=== PATIENT | male | born 1950 | race Caucasian/White ===

== ENCOUNTER 2018-09-18 14:42 | Inpatient (IN) | payer OTHER ==
[~2018-09-18] VITALS: Ht 170.2 cm; Wt 84.4 kg
--- NOTE | 2018-09-18 00:16 | NUR ---
CONDOM CATH PLACEMENT ATTEMPTED TWICE BY CHELSY RN AND RESOURCE NURSE. PT BECAME FRUSTRATED, PT STATES, "NEVERMIND, I'LL JUST PEE IN THE URINAL IF IT'S GOING TO KEEP SLIPPING OFF." NO ACUTE DISTRESS NOTED. CALL LIGHT WITHIN REACH. WILL CONT TO MONITOR.
--- NOTE | 2018-09-18 15:03 | NUR ---
O2 2L NC TURNED OFF BY DR COCHRAN FOR ABG DRAW
--- NOTE | 2018-09-18 15:03 | NUR ---
PT BIBA FROM HOME FOR CHEST PAIN AND SOB. PT REPORTS CONSTANT CP FOR 3 MONTHS WORSENED IN THE LAST 3 DAYS WITH SOB ASSOCIATED. PT REPORTS EPISODIC SHARP CHEST PAIN ON L SIDE OF CHEST ONCE AN HR "IT'S LIKE A PUNCH AND IT GOES AWAY." PT AAOX4; ARRIVED IN [facility]. SITTING WITH HOB UP HIGH FOWLERS
--- NOTE | 2018-09-18 15:03 | NUR ---
MSE COMPLETED BY DR COCHRAN.
[2018-09-18 15:09] VITALS: Ht 170.2 cm; Wt 84.4 kg
--- NOTE | 2018-09-18 15:15 | NUR ---
LAB AT [facility] FOR BLOOD DRAW
[2018-09-18 15:44] LABS: BASOPHIL % 0.2 % (0-2); PLATELET COUNT 224 x10^3mcL (130-400); RED CELL DISTRIBUTION WIDTH 21.2 % (11.5-14.5)
[2018-09-18 15:58] LABS: microscopic required? YES; urine erythrocyte NEGATIVE (NEGATIVE)
[2018-09-18 16:02] LABS: rbc morphology (normal/abnorm) ABNORMAL (NORMAL); target cell (codocyte) 1+
[2018-09-18 16:03] LABS: FREE T4 1.16 ng/dL (0.76-1.46); FREE THYROXINE INDEX 2.7 ug/dL (1.4-4.5)
[2018-09-18 16:05] LABS: CALCIUM 8.1 mg/dL (8.5-10.1); CARBON DIOXIDE 24.9 mmol/L (21-32); CHLORIDE SERUM 105 mmol/L (98-107); CREATININE SERUM 1.1 mg/dL (0.7-1.3); GFR1 > 60 mL/min; GLUCOSE SERUM 108 mg/dL (74-106); POTASSIUM SERUM 4.3 mmol/L (3.5-5.1); SODIUM SERUM 141 mmol/L (136-145)
[2018-09-18] MEDS ORDERED: ATORVASTATIN CA40 M1 PO (16:14)
[2018-09-18] MEDS ORDERED: COR6 PO (16:14)
[2018-09-18] MEDS ORDERED: ELIQUIS5 M1 PO (16:14)
[2018-09-18] MEDS ORDERED: CETIRIZINE HYDR10 MG PO (16:15)
[2018-09-18] MEDS ORDERED: GOOD SENSE OMEP20 MG PO (16:15)
[2018-09-18] MEDS ORDERED: HYDROCHLOROTH12.5 M2 PO (16:15)
[2018-09-18] MEDS ORDERED: PRADAXA150 M1 PO (16:15)
[2018-09-18] MEDS ORDERED: LASIX20 MG PO (16:15)
[2018-09-18 16:16] LABS: ALKALINE PHOSPHATASE 139 U/L (46-116); ALT/SGPT 16 U/L (16-63); AST/SGOT 21 U/L (15-37); BILIRUBIN TOTAL 0.8 mg/dL (0.20-1.00); C REACTIVE PROTEIN 2.8 mg/dL (<=0.9); TOTAL PROTEIN, SERUM 7.8 g/dL (6.4-8.2)
[2018-09-18 16:17] LABS: ALBUMIN 2.9 g/dL (3.4-5.0)
[2018-09-18 16:28] LABS: ERYTHROCYTE SED RATE 51 mm/hr (0-20)
--- NOTE | 2018-09-18 16:46 | NUR ---
PT KEPT NPO PER DR COCHRAN ORDER BUT ICE CHIPS OK. ICE CHIPS GIVEN TO PT.
--- NOTE | 2018-09-18 17:32 | NUR ---
RT AT BEDSIDE TO PLACE PT ON BIPAP
[2018-09-18 17:40] LABS: T3 TOTAL 0.62 ng/mL
--- NOTE | 2018-09-18 17:40 | NUR ---
DR COCHRAN AWARE PT STATING HE STILL HAS CHEST PAIN
--- NOTE | 2018-09-18 17:48 | NUR ---
TX STILL IN PLACE VIA BIPAP. PT REPORTS FEELING BETTER AND LESS SOB
--- NOTE | 2018-09-18 17:49 | NUR ---
DR VIEIRA AT BEDSIDE ASSESSING PT
--- NOTE | 2018-09-18 18:21 | NUR ---
REPORT GIVEN TO JOSEPH HUGHES
[2018-09-18 18:57] VITALS: BP 178/77
--- NOTE | 2018-09-18 19:02 | NUR ---
RECEIVED PT FROM ED VIA [facility]. ORIENTED PT TO ROOM AND SURROUNDINGS. IV NOTED TO LAC PATENT AND INTACT. TELE 6 PLACED ON PT READING AFIB. INSTRUCTED PT ON THE USE OF CALL LIGHT FOR ASSISTANCE. ENDORSED PT TO PRIMARY NURSE
--- NOTE | 2018-09-18 19:08 | NUR ---
PT RECEIVED FROM RESOURCE NURSE. PT A/O X4, ABLE TO MAKE NEEDS KNOWN. TELE #6, AFIB, DENIES CP/PRESSURE. PULSES PALPABLE, EDEMA TO BLE. LUNG SOUNDS CONGESTED JULIOCESAR, BREATHING IS EVEN AND UNALBORED ON 2L NC, ADMITS TO SOB UPON EXERTION. ABD SOFT AND ROUND, BOWEL TONES ACTIVE X4 QUAD, DENIES N/V. VOIDS FREELY, URINAL AT BEDSIDE. AMBULATORY WITH CANSE AT BASELINE. ECCHYMOSIS TO BUE AND SCATTERED ECCHYMOSIS TO BUTTOCKS, JESSICA. PT DENIES ANY PAIN AT THIS TIME. SL TO LAC, PATENT AND INTACT, SITE FREE FROM REDNESS OR SWELLING. BED IN LOWEST SETTING, SIDE RAILS UP X2, CALL LIGHT WITHIN REACH. WILL CONT TO MONITOR.
[2018-09-18 19:14] LABS: MAGNESIUM 1.7 mg/dL (1.8-2.4); PHOSPHOROUS 3.1 mg/dL (2.5-4.9)
[2018-09-18 19:16] LABS: CHOLESTEROL/HDL RATIO 3.1
[2018-09-18 21:12] VITALS: BP 146/62
--- NOTE | 2018-09-18 21:35 | NUR ---
PT C/O 8/10 RLE PAIN AND HEADACHE, PRN TYLENOL GIVEN ORDERED. NO ACUTE DISTRESS NOTED. WILL CONT TO MONITOR.
[2018-09-18 21:40] VITALS: BP 161/44
[2018-09-18 22:01] VITALS: BP 145/51
--- NOTE | 2018-09-18 22:13 | NUR ---
PT C/O "PEEING TOO MUCH." PT WAS GIVEN IV LASIX IN ED. PT STATES, "I WANT A VAZQUEZ! I CAN'T BE STANDING UP EVERY FIVE MINUTES TO PEE!" EDUCATED PT ON RISK OF DEVELOPING INFECTION WITH VAZQUEZ CATH, PT VERBALIZES UNDERSTANDING. PT STATES, "OKAY, I UNDERSTAND, BUT I'M WILLING TO TAKE THE RISK!" DR MCKEON MADE AWARE, AWAITING ORDERS AT THIS TIME.
--- NOTE | 2018-09-18 22:38 | NUR ---
PT REFUSING VAZQUEZ CATH. PT STATES, "NO, NOT THAT ONE! THAT ONE HURTS! I WANT THE ONE THAT GOES OVER AND ATTACHES TO THE SIDE." PT REQUESTING CONDOM CATH INSTEAD OF VAZQUEZ CATH. DR MCKEON MADE AWARE, AWAITING ORDERS AT THIS TIME.
--- NOTE | 2018-09-18 22:44 | NUR ---
DR MCKEON MADE AWARE OF US CHEST RESULTS. NO NEW ORDERS AT THIS TIME.
--- NOTE | 2018-09-18 23:12 | NUR ---
CONDOM CATH PLACEMENT ATTEMPTED TWICE BY CHELSY RN AND RESOURCE NURSE WITH NO SUCCESS. PT BECAME FRUSTRATED, PT STATES "IT KEEPS SLIPPING OUT! IF IT'S GOING TO KEEP COMING OUT, THEN I'LL JSUT USE THE URINAL." URINAL PLACED AT BEDSIDE. NO ACUTE DISTRESS NOTED. CALL LIGHT WITHIN REACH. WILL CONT TO MONITOR.
--- NOTE | 2018-09-18 23:47 | NUR ---
PT CONT TO C/O 01/08 RLE PAIN AND HEADACHE, DR MCKEON MADE AWARE, ORDERS RECEIVED. PRN NORCO 5/325 PO GIVEN ORDERED. NO ACUTE DISTRESS NOTED. WILL CONT TO MONITOR.
--- NOTE | 2018-09-19 01:42 | NUR ---
PT C/O INSOMNIA, PRN AMBIEN GIVEN ORDERED. BREATHING IS EVEN AND UNLABORED, NO ACUTE DISTRESS NOTED. HOB ELEVATED. CALL LIGHT WITHIN REACH. WILL CONT TO MONITOR.
[2018-09-19 06:35] LABS: CALCIUM 8.1 mg/dL (8.5-10.1); CARBON DIOXIDE 30.8 mmol/L (21-32); CHLORIDE SERUM 104 mmol/L (98-107); CREATININE SERUM 1.2 mg/dL (0.7-1.3); GFR1 > 60 mL/min; GLUCOSE SERUM 104 mg/dL (74-106); POTASSIUM SERUM 4.6 mmol/L (3.5-5.1); SODIUM SERUM 139 mmol/L (136-145)
[2018-09-19 06:37] LABS: BASOPHIL % 0.7 % (0-2); PLATELET COUNT 207 x10^3mcL (130-400)
[2018-09-19 06:38] VITALS: BP 131/44
--- NOTE | 2018-09-19 06:48 | NUR ---
PT SLEPT AT INTERVALS THROUGHOUT THE EVENING. BREATHING IS EVEN AND UNLABORED, NO RESP DISTRESS NOTED. PT DENIES HAVING ANY PAIN AT THIS TIME. IV TO LAC, PATENT AND INTACT, SITE FREE FROM REDNESS OR SWELLING. NO ACUTE DISTRESS NOTED. HOB ELEVATED. CALL LIGHT WITHIN REACH. WILL ENDORSE CARE TO AM NURSE.
[2018-09-19 07:07] VITALS: BP 145/50
--- NOTE | 2018-09-19 07:28 | NUR ---
PT C/O 03/10 HEADACHE, PRN TYLENOL GIVEN ORDERED. NO ACUTE DISTRESS NOTED. CONTINUITY OF CARE ENDORSED TO AM NURSE. ALL QUESTIONS AND CONCERNS ADDRESSED
[2018-09-19 07:37] LABS: RED CELL DISTRIBUTION WIDTH 21.1 % (11.5-14.5)
--- NOTE | 2018-09-19 07:45 | NUR ---
PT IS AAOX4. RESP EVEN, SHALLOW. LUNG SOUND CONGESTED LOWER LOBES. ON O2 N/C AT [address] READING AFIB, HR 68. NO C/O CHEST PAIN, PRESSURE, PALPITATIONS. ABDOMEN SOFT, ROUND, NONDISTENDED, NONTENDER. SKIN CDI WITH ECCYMOSIS NOTED ON L AND R UPPER ARMS AND BILATERAL BUTTOCKS. PT DENIES PAIN AND DISCOMFORT AT THIS TIME. IV CATH TO LAC, N/S LOCKED, FLUSHED AND PATENT. SITE WNL. CALL LIGHT WITHIN REACH. BED IN LOWEST POSITION.
--- NOTE | 2018-09-19 09:06 | NUR ---
ECHOCARDIOGRAM PENDING-PATIENT REQUESTING TEST BE DONE LATER-WANTS TO SLEEP
--- NOTE | 2018-09-19 09:30 | NUR ---
PT IS SLEEPY BUT AROUSABLE. DUE MEDS GIVEN. B/B145/50 (81), HR 62. RESP EVEN AND UNLABORED. DENIES PAIN AT THIS TIME. CALL LIGHT WITHIN REACH.
--- NOTE | 2018-09-19 09:51 | NUR ---
DR. MONTOYA AND MEDICAL TEAM MET WITH PT AND DISCUSSED POC. PT IS TO STAY ONE MORE MIDNIGHT THEN BE REEVALUATED ON 09/20/18. POC IS TO REMOVE FLUID FROM LUNGS. PT AGREED WITH POC.
--- NOTE | 2018-09-19 10:48 | NUR ---
ECHO PENDING-BATHROOM
--- NOTE | 2018-09-19 12:58 | NUR ---
PT NOTED WITH HR TRENDING FROM 66BPM TO 47 BPM AND BACK TO 64 BPM. PT IS GROGGY BUT RESPONDS TO COMMANDS. DR. VIEIRA MADE AWARE, NO NEW ORDERS AT THIS TIME.
[2018-09-19 13:13] LABS: rbc morphology (normal/abnorm) ABNORMAL (NORMAL)
[2018-09-19 13:16] VITALS: BP 122/45
--- NOTE | 2018-09-19 14:51 | NUR ---
DR. VIEIRA MET WITH PT AND INFORMED HIM ON ORDER FOR U/S GUIDED THORACENTISIS. PT AGREED TO HAVE PROCEDURE. INFORMED CONSENT HAS BEEN SIGNED AND PLACED IN PT'S CHART.
[2018-09-19 15:15] VITALS: BP 102/49
--- NOTE | 2018-09-19 15:15 | NUR ---
NORCO 5/325MG PO GIVEN FOR L LOWER ABDOMEN PAIN 12/30O. RESP EVEN AND UNLABORED. PT NOW RESTING IN BED. CALL LIGHT WITHIN REACH. WILL CONTINUE TO MONITOR.
--- NOTE | 2018-09-19 18:31 | NUR ---
PT IS AAOX4. RESP SHALLOW, EVEN AND UNLABORED, LUNG SOUNDS DIMISHED BILATERALLY. ON O2 N/C AT 2LPM. PT DENIES PAIN AT THIS TIME. NO DISTRESS NOTED. TELEMONITOR [address] READING AFIB HR 95. PT DENIES PAIN AT THIS TIME. CALL LIGHT WITHIN REACH. BED IN LOWEST POSITION. FALL PROTOCOL FOLLOWED.
--- NOTE | 2018-09-19 19:10 | NUR ---
AOX4. TELE #6, AFIB, 80'S. LUNGS CONGESTED ON NC @ 2L. PULSES PALPABLE. NO EDEMA. BOWEL SOUNDS ACTIVE. VOIDS FREELY. AMBULATORY. BRUISES TO BUE AND BUTTOCKS. DENIES PAIN. SL TO LAC, PATENT, CDI. BED IN LOWEST POSITION, 2 SIDE RAILS UP, CALL LIGHT IN REACH. INSTRUCTED TO CALL FOR ASSISTANCE.
[2018-09-19 20:27] VITALS: BP 101/40
--- NOTE | 2018-09-20 01:07 | NUR ---
RESTING IN BED WITH EYES CLOSED. BREATHING EVEN AND UNLABORED ON NC @ 2L. WILL CONTINUE TO MONITOR.
[2018-09-20 05:28] VITALS: BP 109/42
--- NOTE | 2018-09-20 05:45 | NUR ---
NO ACUTE CHANGES. WILL ENDORSE TO ONCOMING RN
[2018-09-20 06:57] LABS: BASOPHIL % 0.4 % (0-2); PLATELET COUNT 269 x10^3mcL (130-400)
[2018-09-20 07:00] LABS: RED CELL DISTRIBUTION WIDTH 21.3 % (11.5-14.5)
[2018-09-20 07:05] LABS: CALCIUM 8.5 mg/dL (8.5-10.1); CREATININE SERUM 1.4 mg/dL (0.7-1.3); PHOSPHOROUS 4.2 mg/dL (2.5-4.9); POTASSIUM SERUM 3.6 mmol/L (3.5-5.1)
--- NOTE | 2018-09-20 07:15 | NUR ---
RECIEVED PT FROM [employer], PT IS RESTING COMFORTABLY IN BED. VS WNL AND NO DISTRESS NOTED. IV INTACT AND PATENT. TELE MONITIR #6 CONNECTED TO PATIENT. NO CHEST PAIN NOTED. WILL CONTINUE TO MONITOR.
--- NOTE | 2018-09-20 08:35 | NUR ---
SPOKE WITH KATH IN RADIOLOGY, SHE ASKED THAT WE HOLD THE PATIENTS PRADAXA DUE TO PATIENTS UPCOMING THORECENTISIS "TOMORROW OR THE NEXT". HELD PER REQUEST.
--- NOTE | 2018-09-20 08:35 | NUR ---
SPOKE WITH KATH IN RADIOLOGY, SHE ASKED THAT WE HOLD THE PATIENTS PRADAXA DUE TO PATIENTS UPCOMING THORECENTISIS "TOMORROW OR THE NEXT". 0900PRADAXA HELD PER REQUEST.
--- NOTE | 2018-09-20 08:40 | NUR ---
RECEIVED ORDERS FOR US GUIDED THORACENTESIS, BILATERAL PLEURAL EFFUSIONS APPROX 400 ML. PATIENT IS ON PRADAXA. PER DR BECKWITH WILL NEED TO HOLD THE PRADAXA AND POSTPONE PROCEDURE. SPOKE WITH PATIENT'S NURSE MARIT TO NOTIFY HER.
[2018-09-20 09:00] VITALS: BP 126/57
[2018-09-20 09:19] LABS: ovalocyte/elliptocyte 1+; rbc morphology (normal/abnorm) ABNORMAL (NORMAL)
--- NOTE | 2018-09-20 09:40 | NUR ---
DR MONTOYA AT BEDSIDE TO SEE PATIENT AT THIS TIME. NOTIFIED PATIENT THAT HE WILL NOT BE GOING HOME TODAY, THORACENTISIS IS PENDING.
--- NOTE | 2018-09-20 09:40 | NUR ---
DR MONTOYA AT BEDSIDE TO SEE PATIENT AT THIS TIME. NOTIFIED PATIENT THAT HE WILL NOT BE GOING HOME TODAY, THORACENTISIS IS PENDING.
[2018-09-20 13:45] VITALS: BP 110/60
--- NOTE | 2018-09-20 13:57 | NUR ---
PT SAID HE DOESNOT FEEL GOOD AFTER HE EAT LUNCH, FEEL NAUSEA AND DIZZINESS. BP IS 88/50 WITH MAP 62. OFFERED NAUSEA MEDICATIONS BUT PT REFUSING. INFORMED . SHE CHECKED PT. CHECKED PT BP MANNUALLY AND SHE GOT 110/60 AND PT SPO2 IS 88% IN RA. PUT PT ON O2 4L AND SATTING 98%. SAID PT IS FINE, SHE ORDERED SIMETHICONE PO AND REQUESTED TO GIVE NOW. PT REFUSED ATIVAN PO. AWARE. WILL CLOSELY MONITOR THE PT.
--- NOTE | 2018-09-20 15:13 | NUR ---
PT COMFORTABLY RESTING IN BED. NO RESPIRATORY DISTRESS OR PAIN NOTED. WILL CONTINUE TO MONITOR.
--- NOTE | 2018-09-20 16:30 | NUR ---
PT RESTING COMFORTABLY IN BED. NO DISTRESS NOTED. SAFETY PRECAUTIONS IN PLACE CALL LIGHT WITHIN REACH. WILL MONITOR
[2018-09-20 17:59] VITALS: BP 100/43
--- NOTE | 2018-09-20 18:31 | NUR ---
PATIENT RESTING COMFORTABLY IN BED. REPORTS NO PAIN OR RESPIRATORY DISTRESS AT THIS TIME. PT STABLE AT THIS TIME. TOLERATED ALL CARES WELL. WILL REPORT OFF TO NEXT SHIFT.
[2018-09-20 21:06] VITALS: BP 115/75
--- NOTE | 2018-09-20 21:10 | NUR ---
PT RECIEVED AAO REG RESP NO SOB V/S STABLE,PT ON TELE MONITOR ANS IN AFIB NO CHEST PAIN REPORTED AT THIS TIME,BUT WITH C/O OF H/A ARCHING IN NARTURE AT THE SCALE OF 5/10,WILL MEDICATE FOR THAT,BED IN THE LOW POSITION AND LOCKED,KEPT CLEAN AND DRY TO TOUCH AND WILL CONTINUE TO MONITOR.
[2018-09-20 21:46] VITALS: BP 112/49
--- NOTE | 2018-09-21 01:45 | NUR ---
PT SLEEPING SOUNDLY AT THIS TIME AND WILL CONTINUE TO MONITOR.
[2018-09-21 05:40] VITALS: BP 123/61
[2018-09-21 07:01] LABS: BASOPHIL % 0.3 % (0-2); PLATELET COUNT 244 x10^3mcL (130-400)
[2018-09-21 07:15] LABS: CALCIUM 8.4 mg/dL (8.5-10.1); CARBON DIOXIDE 26.4 mmol/L (21-32); CREATININE SERUM 1.4 mg/dL (0.7-1.3); POTASSIUM SERUM 3.9 mmol/L (3.5-5.1)
--- NOTE | 2018-09-21 07:17 | NUR ---
PT RESTING AT THIS TIME,ON TELE MONITOR AND IN AFIB NO CHEST PAIN AT THIS TIME,KEPT CLEAN AND DRY TO TOUCH AND WILL CONTINUE TO MONITOR.
[2018-09-21 07:32] LABS: RED CELL DISTRIBUTION WIDTH 20.6 % (11.5-14.5)
[2018-09-21 08:31] VITALS: BP 113/45
[2018-09-21 09:50] VITALS: BP 123/61
--- NOTE | 2018-09-21 11:02 | NUR ---
PT SLEEPING SOUNDLY AT THIS TIME,HOB NO ACUTE DISTRESS NOTICE AT THIS TIME,KEPT CLEAN AND DRY TO TOUCH AND WILL CONTINUE TO MONITOR.
--- NOTE | 2018-09-21 11:30 | NUR ---
ASSUMED CARE OF PATIENT FROM WILMAN BOSS. PATIENT ALERT, ORIENTED X4, RESTING IN BED. NO DISCOMFORT NOTED. PATIENT DENIES SOB'S OR PAIN. WILL CONTINUE TO MONITOR PATIENT AND MAINTAIN SAFETY.
[2018-09-21 13:02] VITALS: BP 115/55
--- NOTE | 2018-09-21 13:15 | NUR ---
RECEIVED PT FROM SAUL PATTERSON. PT SEEN LYING IN BED, HAS HIS EYES CLOSED, EASILY AROUSABLE TO VERBAL STIMULI. AAOX4. NO SOB NOTED, LUNG SOUNDS DIMINISHED ON THE BASES. ON TELE#6, AFIB ON THE MONITOR. W/ +1 EDEMA ON BLE. W/ DARK DISCOLORATIONS ON BUE, BLE AND BUTTOCKS. PT ABLE TO TURN AND REPOSITION SELF IN BED. SIDE RAILS UPX2. CALL LIGHT ON REACH. WILL CONT TO MONITOR
--- NOTE | 2018-09-21 13:20 | NUR ---
RECEIVE DPT FROM SAUL PATTERSON. PT SEEN LYING IN BED, AAOX4. AUDIBLE WHEEZES NOTED, ON 4LPM/NC. DENIES CHEST PAIN/PRESSURE, ON TELE #23, SR ON THE MONITOR. IV ISTE ON THE LEFT HAND GAUGE 20 IS PATENT AND INTACT. SIDE RAILS UPX2. CALL LIGHT ON REACH. WILL CONT TO MONITOR
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
--- NOTE | 2018-09-21 13:40 | NUR ---
Continue Cardiac diet.
--- NOTE | 2018-09-21 14:05 | NUR ---
RADIOLOGIST AND SAUL SEVILLA AT BEDSIDE TO PERFORM ULTRASOUND GUIDED THORACENTESIS.
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
[2018-09-21 15:14] LABS: SOURCE FLUID THORACENTESIS
--- NOTE | 2018-09-21 15:51 | NUR ---
DR. FRIED MADE AWARE THAT THE ULTRASOUND GUIDED THORACENTESIS ON THE RIGHT IS ALREADY DONE AND PER ROEL HUGHES, THE RADIOLOGIST DOES NOT WANT TO DRAIN THE LEFT THE PROCEDURE IS FOR DIAGNOSTIC ONLY AT THIS TIME.
[2018-09-21 17:57] VITALS: BP 130/50
--- NOTE | 2018-09-21 18:06 | NUR ---
PT'S O2 SAT WAS AT 87% ON RA, PLACED ON 2LPM/NC, O2 INCREASED TO 94%. ENCOURAGED PT TO TAKE DEEP BREATHS. NO C/O PAIN AND SOB AT THIS TIME. IV SITE ON THE LEFT WRIST IS PATENT AND INTACT. SIDE RAILS UPX2. CALL LIGHT ON REACH. NEEDS ARE ATTENDED. WILL CONT TO MONITOR
--- NOTE | 2018-09-21 19:20 | NUR ---
BEDSIDE REPORT GIVEN TO GLENN FOR CONTINUITY OF CARE
--- NOTE | 2018-09-21 19:53 | NUR ---
Awake and vebally responsive. No respiratory distress noted on 02 2lpm via n/c. Denies pain. Denies n/v. Fluid restriction 1liter/day reminded. Verbalized understanding. Will cont.to monitor. Call light within reach.
[2018-09-21 21:36] VITALS: BP 126/63
--- NOTE | 2018-09-22 04:38 | NUR ---
Afebrile. No significant change in condition noted. Pain controlled. Denies n/v. No SOB noted. Resting at this time. In no apparent distress.
[2018-09-22 05:43] VITALS: BP 115/50
[2018-09-22 07:11] LABS: BASOPHIL % 0.3 % (0-2); PLATELET COUNT 263 x10^3mcL (130-400)
--- NOTE | 2018-09-22 07:26 | NUR ---
RECEIVED IN NO DISTRESS,AWAKE, AND ALERT. NO C/O PAIN OR DISCOMFORT AT THIS TIME. NO SOB NOTED. PT STATED READY TO GO HOME. CALL LIGHT WITHIN REACH. WILL CONTINUE WITH PLAN OF CARE.
[2018-09-22 07:30] LABS: CALCIUM 8.3 mg/dL (8.5-10.1); CARBON DIOXIDE 25.9 mmol/L (21-32); CREATININE SERUM 1.3 mg/dL (0.7-1.3); POTASSIUM SERUM 4.5 mmol/L (3.5-5.1)
[2018-09-22 07:52] LABS: RED CELL DISTRIBUTION WIDTH 20.6 % (11.5-14.5)
[2018-09-22] MEDS ORDERED: L40 PO (08:56)
[2018-09-22] MEDS ORDERED: ZITHROMAX1 GM/Packe PO (08:57)
[2018-09-22] MEDS ORDERED: POTASSIUM CHLO10 MEQ PO (09:08)
[2018-09-22 09:22] VITALS: BP 115/50
--- NOTE | 2018-09-22 09:33 | NUR ---
PT DC'D HOME IN NO DISTRESS. AWAKE, ALERT AND ORIENTED. DC INSTRUCTIONS REVIEWED WITH PT. RX GIVEN. HL REMOVED AND SITE CLEAR. PT DENIES ANY DISCOMFORT AT THE TIME OF DC. PERSONAL BELONGINGS TAKEN HOME.
== END 2018-09-22 09:38 | disposition home or self-care (01) | DRG 291 ==
LOC: ED 14:42 → MU 17:41 → DU 17:41 → MU 09-21 17:22
PROVIDERS: Internal Medicine; Specialist; ADMIT Family Medicine
PROC: 0W993ZZ Drainage of Right Pleural Cavity, Percutaneous Approach (ICD-10-PCS; principal; 2018-09-21)
DX: I11.0 Hypertensive heart disease with heart failure (principal); J18.9 Pneumonia, unspecified organism; N17.0 Acute kidney failure with tubular necrosis; J90 Pleural effusion, not elsewhere classified; J81.1 Chronic pulmonary edema; E44.0 Moderate protein-calorie malnutrition; I50.23 Acute on chronic systolic (congestive) heart failure; I48.91 Unspecified atrial fibrillation; I42.9 Cardiomyopathy, unspecified; R73.03 Prediabetes; Z68.28 Body mass index [BMI] 28.0-28.9, adult; Z96.643 Presence of artificial hip joint, bilateral; Z72.0 Tobacco use
CPT/HCPCS: 32555; 36600; 83880; 84439; 87804; C1729; J1940; J2270; J2543; J7613; J7620; J7644; Q0092